=== PATIENT | male | born 1960 | race Native Hawaiian/Other Pacific Islander ===

== ENCOUNTER 2020-08-16 18:42 | Emergency (ER) | payer OTHER ==
[~2020-08-16] VITALS: Ht 172.7 cm; Wt 83.0 kg
[2020-08-16 19:19] LABS: PLATELET COUNT 332 K/uL (142-355)
[2020-08-16 19:28] LABS: POTASSIUM 3.4 mmol/L (3.6-5.2)
[2020-08-16 19:45] VITALS: BP 142/81; TEMP 98.5
== END 2020-08-16 19:44 | disposition home or self-care (01) ==
LOC: ED 18:42
PROVIDERS: Family Medicine
DX: T63.461A Toxic effect of venom of wasps, accidental (unintentional), initial encounter (principal); T78.2XXA Anaphylactic shock, unspecified, initial encounter; Y92.89 Other specified places as the place of occurrence of the external cause
CPT/HCPCS: 80053; 82550; 85027; 93005; 96360; 96375; 99284; J1885